=== PATIENT | male | born 1965 | race Two or more races ===

== ENCOUNTER 2017-04-18 11:09 | Emergency (ER) | payer OTHER, SELFPAY ==
[~2017-04-18] VITALS: Ht 190.5 cm; Wt 95.5 kg
[2017-04-18] MEDS ORDERED: HYDROcodone/APAP 5/325 TABLET ONE (11:38)
[2017-04-18] MEDS ORDERED: KETOROLAC 30 MG/1 ML ONE (11:38)
[2017-04-18] MEDS ORDERED: METHOCARBAMOL 750 MG TABLET ONE (11:38)
[2017-04-18] MEDS ORDERED: KETOROLAC 30 MG/1 ML IM ONE (12:00)
[2017-04-18] MEDS ORDERED: HYDROcodone/APAP 5/325 TABLET PO ONE (12:00)
[2017-04-18] MEDS ORDERED: METHOCARBAMOL 750 MG TABLET PO ONE (12:00)
[2017-04-18 13:55] VITALS: BP 130/82
== END 2017-04-18 13:58 | disposition home or self-care (01) ==
LOC: ED 12:20
DX: M54.41 Lumbago with sciatica, right side (principal); M47.26 Other spondylosis with radiculopathy, lumbar region; G89.29 Other chronic pain; M25.562 Pain in left knee
CPT/HCPCS: 72110; 96372; 99284; J1885

== ENCOUNTER 2018-04-18 12:00 | Emergency (ER) | payer BC ==
[~2018-04-18] VITALS: Ht 193 cm; Wt 93.0 kg
[2018-04-18] MEDS ORDERED: LORazepam 2 MG/ML, 1ML IVPush ONE (12:30)
[2018-04-18] MEDS ORDERED: ASPIRIN 81 MG TABLET CHEW PO ONE (12:30)
[2018-04-18] MEDS ORDERED: SODIUM CHLORIDE FLUSH 10ML SYR IVF ONE (12:30)
[2018-04-18] MEDS ORDERED: ASPIRIN 81 MG TABLET CHEW ONE (12:35)
[2018-04-18] MEDS ORDERED: LORazepam 2 MG/ML, 1ML ONE (12:36)
[2018-04-18 12:37] LABS: BASOPHILS # (AUTO) 0.04 x10^3/uL (0-0.1); BASOPHILS % (AUTO) 0 % (0-1); EOSINOPHILS # (AUTO) 0.09 x10^3/uL (0-0.4); EOSINOPHILS % (AUTO) 1 % (1-7); LYMPHOCYTES % (AUTO) 31 % (22-44); MD NO; MEAN CORPUSCULAR HEMOGLOBIN 27.3 pg (27.5-34.5); MEAN CORPUSCULAR HGB CONC 33.5 g/dL (33.2-36.2); MEAN CORPUSCULAR VOLUME 81.4 fL (81-97); MEAN PLATELET VOLUME 7.3 fL (7.4-10.4); MONOCYTES # (AUTO) 0.95 x10^3/uL (0.2-0.8); MONOCYTES % (AUTO) 8 % (2-9); NEUTROPHILS # (AUTO) 7.29 x10^3/uL (1.8-6.8); NEUTROPHILS % (AUTO) 60 % (42-75); PLATELET COUNT 359 x10^3/uL (130-400); RED BLOOD COUNT 5.33 x10^6/uL (4.38-5.82); RED CELL DISTRIBUTION WIDTH 14.2 % (9.4-14.8)
[2018-04-18 12:49] LABS: ALBUMIN 3.6 g/dL (3.4-5.0); ANION GAP 8 mmol/L (5-15); CALCIUM 8.3 mg/dL (8.5-10.1); CHLORIDE 108 mmol/L (98-107)
[2018-04-18 12:53] LABS: TROPONIN I < 0.015 ng/mL (0.000-0.045)
[2018-04-18 15:04] VITALS: BP 122/74
== END 2018-04-18 15:06 | disposition home or self-care (01) ==
LOC: ED 14:04
DX: I10 Essential (primary) hypertension (principal); H53.8 Other visual disturbances
CPT/HCPCS: 36415; 70450; 71045; 80048; 82040; 83880; 84484; 85025; 85379; 93005; 96374; 99285; J2060

== ENCOUNTER 2018-11-26 14:23 | Inpatient (IN) | payer MEDICAID, OTHER ==
[~2018-11-26] VITALS: Ht 193 cm; Wt 96.8 kg
--- NOTE | 2018-11-26 14:44 | NUR ---
Reviewed student nurse charting. Agree with assessment.
[2018-11-26 14:51] LABS: BASOPHILS # (AUTO) 0.04 x10^3/uL (0-0.1); BASOPHILS % (AUTO) 0 % (0-1); EOSINOPHILS # (AUTO) 0.02 x10^3/uL (0-0.4); EOSINOPHILS % (AUTO) 0 % (1-7); LYMPHOCYTES % (AUTO) 22 % (22-44); MD NO; MEAN CORPUSCULAR HEMOGLOBIN 27.7 pg (27.5-34.5); MEAN CORPUSCULAR HGB CONC 33.3 g/dL (33.2-36.2); MEAN CORPUSCULAR VOLUME 83.3 fL (81-97); MEAN PLATELET VOLUME 7.4 fL (7.4-10.4); MONOCYTES # (AUTO) 0.65 x10^3/uL (0.2-0.8); MONOCYTES % (AUTO) 4 % (2-9); NEUTROPHILS # (AUTO) 11.21 x10^3/uL (1.8-6.8); NEUTROPHILS % (AUTO) 74 % (42-75); PLATELET COUNT 372 x10^3/uL (130-400); RED CELL DISTRIBUTION WIDTH 14.4 % (9.4-14.8)
[2018-11-26 15:03] LABS: ALBUMIN 4.1 g/dL (3.4-5.0); ANION GAP 9 mmol/L (5-15); CALCIUM 9.4 mg/dL (8.5-10.1); CHLORIDE 108 mmol/L (98-107); CREATININE 0.94 mg/dL (0.7-1.3)
[2018-11-26 15:08] LABS: MICROSCOPIC AUTO
[2018-11-26 15:09] LABS: CULTURE INDICATED? YES
--- NOTE | 2018-11-26 15:33 | NUR ---
Pt c/o penis pain. Dr. Araiza made aware.
[2018-11-26 15:40] LABS: ALBUMIN 4.1 g/dL (3.4-5.0); BILIRUBIN, DIRECT 0.1 mg/dL (0.1-0.2)
[2018-11-26] MEDS ORDERED: ACETAMINOPHEN 500 MG TABLET ONE (15:40)
[2018-11-26] MEDS ORDERED: CEFTRIAXONE PMX 1GM/50ML 50 ML ONE (15:40)
[2018-11-26 15:41] LABS: BILIRUBIN,INDIRECT 0.3 mg/dL (0.0-2.0); BILIRUBIN,TOTAL 0.4 mg/dL (0.2-1.0); TOTAL PROTEIN 8.3 g/dL (6.4-8.2)
--- NOTE | 2018-11-26 15:47 | NUR ---
Pt medicated per MAR, denies other needs.
[2018-11-26] MEDS ORDERED: SODIUM CHLORIDE FLUSH 10ML SYR IVF ONE (16:00)
[2018-11-26] MEDS ORDERED: SODIUM CHLORIDE 0.9% 1,000ML IVBOLUS ONE (16:00)
[2018-11-26] MEDS ORDERED: CEFTRIAXONE PMX 1GM/50ML 50 ML IVPB ONE (16:00)
[2018-11-26] MEDS ORDERED: ACETAMINOPHEN 500 MG TABLET PO ONE (16:00)
[2018-11-26] MEDS ORDERED: KETOROLAC 30 MG/1 ML ONE (16:12)
--- NOTE | 2018-11-26 16:16 | NUR ---
Pt medicated for continued pain per MAR
[2018-11-26] MEDS ORDERED: KETOROLAC 30 MG/1 ML IVPush ONE (16:30)
[2018-11-26] MEDS ORDERED: OMNIPAQUE 350 MG/ML, 100ML BOTTLE ONE (16:50)
[2018-11-26] MEDS ORDERED: HYDROcodone/APAP 5/325 TABLET ONE (17:27)
[2018-11-26] MEDS ORDERED: HYDROcodone/APAP 5/325 TABLET PO ONE (17:30)
--- NOTE | 2018-11-26 17:30 | NUR ---
Pt states pain still 02/06, requesting additional pain medication. Discussed with Dr. Araiza, orders received for [place] PO. Pt medicated per order, denies other needs.
--- NOTE | 2018-11-26 17:42 | NUR ---
Dr. Briceño at bedside to evaluate pt for admission.
--- NOTE | 2018-11-26 17:52 | NUR ---
Report called to Chavez RAHMAN on medical, floor ready for pt transport.
[2018-11-26] MEDS ORDERED: POLYETHYLENE GLYCOL 17 GM PACKET PO PRN (18:00)
[2018-11-26] MEDS ORDERED: LABETALOL 20 MG/4 ML IVPush PRN (18:00)
[2018-11-26] MEDS ORDERED: ONDANSETRON ODT 4 MG PO PRN (18:00)
[2018-11-26] MEDS ORDERED: ONDANSETRON 2MG/ML, 2ML IVPush PRN (18:00)
[2018-11-26 18:08] LABS: FREE T4 (FREE THYROXINE) 0.99 ng/dL (0.76-1.46)
--- NOTE | 2018-11-26 18:15 | NUR ---
Pt in MRI at this time.
[2018-11-26] MEDS ORDERED: GADOBUTROL 10 MMOL/10 ML PFS ONE (18:23)
[2018-11-26 18:28] LABS: HCT (SEDRATE) 45.8 % (39.2-51.8)
--- NOTE | 2018-11-26 18:42 | NUR ---
Pt back from MRI, given water per request. Pt denies other needs.
[2018-11-26 19:40] VITALS: BP 130/78
[2018-11-26] MEDS: SODIUM CHLORIDE 0.9% 1,000 ML IV SCH (21:19)
[2018-11-27] MEDS ORDERED: ACETAMINOPHEN 325 MG TABLET PO PRN (00:30)
[2018-11-27] MEDS ORDERED: morphine SULFATE 10 MG/ML, 1ML IVPush PRN (00:30)
[2018-11-27] MEDS: KETOROLAC 30 MG/1 ML IV PRN ×4 (00:38→21:17)
[2018-11-27 00:40] LABS: AMPHETAMINE SCREEN, URINE Negative (Negative); BARBITURATE SCREEN, URINE Negative (Negative); BENZODIAZEPINE SCREEN, URINE Negative (Negative); CANNABINOID SCREEN, URINE Negative (Negative); COCAINE SCREEN, URINE Negative (Negative); METHADONE SCREEN, URINE Negative (Negative); OPIATE SCREEN, URINE Positive (Negative)
[2018-11-27 02:44] VITALS: BP 126/78
[2018-11-27 04:38] LABS: BASOPHILS # (AUTO) 0.02 x10^3/uL (0-0.1); BASOPHILS % (AUTO) 0 % (0-1); EOSINOPHILS # (AUTO) 0.13 x10^3/uL (0-0.4); EOSINOPHILS % (AUTO) 1 % (1-7); LYMPHOCYTES # (AUTO) 3.64 x10^3/uL (1-3.4); LYMPHOCYTES % (AUTO) 39 % (22-44); MD NO; MEAN CORPUSCULAR HEMOGLOBIN 27.9 pg (27.5-34.5); MEAN CORPUSCULAR HGB CONC 33.4 g/dL (33.2-36.2); MEAN CORPUSCULAR VOLUME 83.5 fL (81-97); MEAN PLATELET VOLUME 7.5 fL (7.4-10.4); MONOCYTES # (AUTO) 0.65 x10^3/uL (0.2-0.8); MONOCYTES % (AUTO) 7 % (2-9); NEUTROPHILS # (AUTO) 4.79 x10^3/uL (1.8-6.8); NEUTROPHILS % (AUTO) 52 % (42-75); PLATELET COUNT 299 x10^3/uL (130-400); RED BLOOD COUNT 4.48 x10^6/uL (4.38-5.82); RED CELL DISTRIBUTION WIDTH 14.7 % (9.4-14.8)
[2018-11-27] MEDS: CEFTRIAXONE PMX 2GM/50ML 50 ML IV SCH (04:47)
[2018-11-27 04:48] LABS: ALANINE AMINOTRANSFERASE 16 U/L (12-78); ALBUMIN 2.9 g/dL (3.4-5.0); ANION GAP 6 mmol/L (5-15); CALCIUM 8.3 mg/dL (8.5-10.1); CHLORIDE 111 mmol/L (98-107); CREATININE 0.81 mg/dL (0.7-1.3)
[2018-11-27] MEDS: SODIUM CHLORIDE 0.9% 1,000 ML IV SCH ×3 (04:48→21:15)
[2018-11-27 04:59] LABS: ALKALINE PHOSPHATASE 60 U/L (45-117); BILIRUBIN,TOTAL 0.3 mg/dL (0.2-1.0); TOTAL PROTEIN 6.1 g/dL (6.4-8.2)
[2018-11-27] MEDS: SENNA/DOCUSATE TABLET PO SCH (08:25)
[2018-11-27 08:59] VITALS: BP 118/74
[2018-11-27] MEDS: METHOCARBAMOL 500 MG TABLET PO PRN ×2 (11:02→17:10)
[2018-11-27 13:30] VITALS: BP 119/66
[2018-11-27 18:47] VITALS: BP 135/83
[2018-11-28] MEDS: METHOCARBAMOL 500 MG TABLET PO PRN ×4 (01:45→20:32)
[2018-11-28 02:33] VITALS: BP 134/75
[2018-11-28] MEDS: SODIUM CHLORIDE 0.9% 1,000 ML IV SCH ×3 (04:12→20:33)
[2018-11-28] MEDS: CEFTRIAXONE PMX 2GM/50ML 50 ML IV SCH (04:12)
[2018-11-28 07:07] VITALS: BP 129/78
[2018-11-28 08:10] LABS: BASOPHILS # (AUTO) 0.03 x10^3/uL (0-0.1); BASOPHILS % (AUTO) 0 % (0-1); EOSINOPHILS # (AUTO) 0.06 x10^3/uL (0-0.4); EOSINOPHILS % (AUTO) 1 % (1-7); LYMPHOCYTES # (AUTO) 3.06 x10^3/uL (1-3.4); LYMPHOCYTES % (AUTO) 35 % (22-44); MD NO; MEAN CORPUSCULAR HEMOGLOBIN 27.3 pg (27.5-34.5); MEAN CORPUSCULAR HGB CONC 33.1 g/dL (33.2-36.2); MEAN CORPUSCULAR VOLUME 82.5 fL (81-97); MEAN PLATELET VOLUME 7.5 fL (7.4-10.4); MONOCYTES # (AUTO) 0.53 x10^3/uL (0.2-0.8); MONOCYTES % (AUTO) 6 % (2-9); NEUTROPHILS # (AUTO) 5.13 x10^3/uL (1.8-6.8); NEUTROPHILS % (AUTO) 58 % (42-75); PLATELET COUNT 337 x10^3/uL (130-400); RED BLOOD COUNT 4.82 x10^6/uL (4.38-5.82); RED CELL DISTRIBUTION WIDTH 14.3 % (9.4-14.8)
[2018-11-28 08:18] LABS: ALBUMIN 3.4 g/dL (3.4-5.0); ANION GAP 5 mmol/L (5-15); CALCIUM 8.5 mg/dL (8.5-10.1)
[2018-11-28 08:22] LABS: ALANINE AMINOTRANSFERASE 17 U/L (12-78); ALKALINE PHOSPHATASE 68 U/L (45-117); BILIRUBIN,TOTAL 0.4 mg/dL (0.2-1.0); CREATININE 0.86 mg/dL (0.7-1.3)
[2018-11-28 08:27] LABS: CHLORIDE 113 mmol/L (98-107)
[2018-11-28] MEDS: KETOROLAC 30 MG/1 ML IV PRN ×2 (08:32→20:32)
[2018-11-28] MEDS: SENNA/DOCUSATE TABLET PO SCH (09:00)
[2018-11-28] MEDS: DOXYCYCLINE 100MG TABLET PO SCH ×2 (09:30→20:32)
[2018-11-28 14:13] VITALS: BP 150/89
[2018-11-28 19:35] VITALS: BP 141/85
[2018-11-29 03:55] VITALS: BP 127/79
[2018-11-29] MEDS: SODIUM CHLORIDE 0.9% 1,000 ML IV SCH (03:57)
[2018-11-29] MEDS: CEFTRIAXONE PMX 2GM/50ML 50 ML IV SCH (03:57)
[2018-11-29 07:04] VITALS: BP 125/78
[2018-11-29] MEDS: SENNA/DOCUSATE TABLET PO SCH (09:00)
[2018-11-29] MEDS: DOXYCYCLINE 100MG TABLET PO SCH (09:21)
[2018-11-29] MEDS ORDERED: CEFD300C37 PO (10:10)
[2018-11-29] MEDS ORDERED: DOXY100T PO (10:10)
== END 2018-11-29 11:11 | disposition home or self-care (01) | DRG 872 ==
LOC: ED 15:36 → EDIP 17:16 → 3NE 17:55 → DCLOUNGE 11-29 11:07
PROVIDERS: ADMIT Internal Medicine; ATTEND Internal Medicine
DX: A41.9 Sepsis, unspecified organism (principal); N10 Acute pyelonephritis; A54.9 Gonococcal infection, unspecified; K80.20 Calculus of gallbladder without cholecystitis without obstruction; R36.9 Urethral discharge, unspecified; Z86.73 Personal history of transient ischemic attack (TIA), and cerebral infarction without residual deficits; F17.200 Nicotine dependence, unspecified, uncomplicated; G89.29 Other chronic pain; J01.90 Acute sinusitis, unspecified; M48.061 Spinal stenosis, lumbar region without neurogenic claudication; R32 Unspecified urinary incontinence; Z90.49 Acquired absence of other specified parts of digestive tract; M54.16 Radiculopathy, lumbar region; H53.8 Other visual disturbances; R31.9 Hematuria, unspecified
CPT/HCPCS: 36415; 72158; 74177; 80048; 80053; 80074; 80076; 80307; 81001; 82040; 83605; 83735; 84100; 84145; 84439; 84443; 85025; 85651; 86592; 87040; 87077; 87086; 87491; 87591; 87806; 96365; 96375; 99291; A9585; G0378; J0696; J1885; Q9967; G0475; J7030

== ENCOUNTER 2019-12-05 08:02 | Inpatient (IN) | payer MEDICAID ==
[~2019-12-05] VITALS: Ht 193 cm; Wt 95.5 kg
[~2019-12-05 08:02] MED LIST: CEFD300C37 PO; DOXY100T PO
--- NOTE | 2019-12-05 08:12 | NUR ---
patient arrives with [facility] from [facility] with pain to left hip and groin that began a week ago. he is writhing in pain. he states he has had this pain for so many years he can't recall.
[2019-12-05] MEDS ORDERED: methylPREDNISolone SOD SUCC 125 MG/2 ML ONE (08:23)
[2019-12-05] MEDS ORDERED: DIAZEPAM 5 MG TABLET ONE (08:23)
[2019-12-05] MEDS ORDERED: HYDROmorphone 1 MG/ML, 1ML INJ ONE (08:24)
[2019-12-05] MEDS ORDERED: DIAZEPAM 5 MG TABLET PO ONE (08:30)
[2019-12-05] MEDS ORDERED: methylPREDNISolone SOD SUCC 125 MG/2 ML IVPush ONE (08:30)
[2019-12-05] MEDS ORDERED: SODIUM CHLORIDE FLUSH 10ML SYR IVF ONE (08:30)
[2019-12-05] MEDS ORDERED: PLEASE ENTER HEIGHT AND WEIGHT MC SCH (08:30)
[2019-12-05] MEDS ORDERED: HYDROmorphone 1 MG/ML, 1ML INJ IVPush PRN (08:30)
[2019-12-05 08:32] LABS: BASOPHILS # (AUTO) 0.03 x10^3/uL (0-0.1); BASOPHILS % (AUTO) 0 % (0-1); EOSINOPHILS # (AUTO) 0.08 x10^3/uL (0-0.4); EOSINOPHILS % (AUTO) 1 % (1-7); LYMPHOCYTES # (AUTO) 2.58 x10^3/uL (1-3.4); LYMPHOCYTES % (AUTO) 30 % (22-44); MD NO; MEAN CORPUSCULAR HEMOGLOBIN 27.3 pg (27.5-34.5); MEAN CORPUSCULAR HGB CONC 33.2 g/dL (33.2-36.2); MEAN CORPUSCULAR VOLUME 82.3 fL (81-97); MEAN PLATELET VOLUME 7.6 fL (7.4-10.4); MONOCYTES # (AUTO) 0.64 x10^3/uL (0.2-0.8); MONOCYTES % (AUTO) 7 % (2-9); NEUTROPHILS # (AUTO) 5.35 x10^3/uL (1.8-6.8); NEUTROPHILS % (AUTO) 62 % (42-75); PLATELET COUNT 297 x10^3/uL (130-400); RED BLOOD COUNT 5.23 x10^6/uL (4.38-5.82); RED CELL DISTRIBUTION WIDTH 13.8 % (9.4-14.8)
[2019-12-05 08:42] LABS: ALBUMIN 3.8 g/dL (3.4-5.0); ANION GAP 11 mmol/L (5-15); CALCIUM 8.7 mg/dL (8.5-10.1); CHLORIDE 107 mmol/L (98-107); CREATININE 1.06 mg/dL (0.7-1.3)
--- NOTE | 2019-12-05 09:01 | NUR ---
patient awaiting mri. pain now a 5 of 10, feels improved.
[2019-12-05] MEDS ORDERED: GADOTERATE 10 MMOL/20 ML SYR ONE ×2 (09:19→18:36)
--- NOTE | 2019-12-05 10:01 | NUR ---
patient returned from mri. pain improved. awaiting results.
[2019-12-05] MEDS ORDERED: KETOROLAC 30 MG/1 ML ONE (10:29)
[2019-12-05] MEDS ORDERED: KETOROLAC 30 MG/1 ML IVPush ONE (10:30)
--- NOTE | 2019-12-05 11:57 | NUR ---
called x1 for report, rn in another room.
[2019-12-05] MEDS ORDERED: ACETAMINOPHEN 325 MG TABLET PO PRN (12:00)
[2019-12-05] MEDS ORDERED: METHOCARBAMOL 500 MG TABLET PO PRN (12:00)
[2019-12-05] MEDS ORDERED: LABETALOL 5MG/ML, 20ML IVPush PRN (12:00)
[2019-12-05] MEDS ORDERED: GABAPENTIN 300 MG CAPSULE PO SCH (12:00)
[2019-12-05] MEDS ORDERED: ONDANSETRON 2MG/ML, 2ML IVPush PRN (12:00)
[2019-12-05] MEDS ORDERED: LIDODERM 5% PATCH TD PRN (12:00)
[2019-12-05] MEDS ORDERED: MEDROL 4MG DOSEPAK PO ONE (12:00)
[2019-12-05] MEDS ORDERED: IBUPROFEN 600 MG TABLET PO PRN (12:00)
[2019-12-05] MEDS ORDERED: morphine SULFATE 10 MG/ML, 1ML IVPush PRN (12:00)
--- NOTE | 2019-12-05 12:12 | NUR ---
report to audra schofield and patient rtg [id number].
[2019-12-05 12:20] LABS: INTERNATIONAL NORMALIZED RATIO 0.96 (0.93-1.1); PROTHROMBIN TIME 10.2 Seconds (9.6-11.5)
[2019-12-05 12:39] VITALS: BP 136/82
[2019-12-05] MEDS ORDERED: HEPARIN 5,000 UNITS/ML, 1ML SQ SCH (13:00)
[2019-12-05] MEDS ORDERED: HYDROmorphone 2 MG/ML, 1ML ONE (15:53)
[2019-12-05] MEDS: HYDROcodone/APAP 5/325 TABLET PO PRN (18:05)
[2019-12-05] MEDS: POTASSIUM CHLORIDE 20 MEQ in LACTATED RINGERS 1,000 ML IV SCH (18:15)
[2019-12-05 19:05] VITALS: BP 157/87
[2019-12-05] MEDS: GABAPENTIN 300 MG CAPSULE PO SCH (20:03)
[2019-12-06 00:11] VITALS: BP 160/66
[2019-12-06 04:53] LABS: MEAN CORPUSCULAR HEMOGLOBIN 27.3 pg (27.5-34.5); MEAN CORPUSCULAR HGB CONC 32.6 g/dL (33.2-36.2); MEAN CORPUSCULAR VOLUME 83.6 fL (81-97); PLATELET COUNT 303 x10^3/uL (130-400); RED BLOOD COUNT 4.99 x10^6/uL (4.38-5.82); RED CELL DISTRIBUTION WIDTH 14.1 % (9.4-14.8)
[2019-12-06 04:59] LABS: ALBUMIN 3.4 g/dL (3.4-5.0); ANION GAP 7 mmol/L (5-15); CALCIUM 8.8 mg/dL (8.5-10.1); CHLORIDE 107 mmol/L (98-107)
[2019-12-06 05:03] LABS: ALANINE AMINOTRANSFERASE 22 U/L (12-78); ALKALINE PHOSPHATASE 76 U/L (45-117)
[2019-12-06] MEDS: POTASSIUM CHLORIDE 20 MEQ in LACTATED RINGERS 1,000 ML IV SCH (05:09)
[2019-12-06] MEDS: HYDROcodone/APAP 5/325 TABLET PO PRN (05:09)
[2019-12-06 06:06] LABS: BASOPHILS # (AUTO) 0.04 x10^3/uL (0-0.1); BASOPHILS % (AUTO) 0 % (0-1); EOSINOPHILS # (AUTO) 0.02 x10^3/uL (0-0.4); EOSINOPHILS % (AUTO) 0 % (1-7); LYMPHOCYTES % (AUTO) 13 % (22-44); MD SCAN; MONOCYTES # (AUTO) 1.13 x10^3/uL (0.2-0.8); MONOCYTES % (AUTO) 7 % (2-9); NEUTROPHILS # (AUTO) 13.71 x10^3/uL (1.8-6.8); NEUTROPHILS % (AUTO) 80 % (42-75)
[2019-12-06 07:02] VITALS: BP 141/76
[2019-12-06] MEDS: GABAPENTIN 300 MG CAPSULE PO SCH (09:32)
[2019-12-06] MEDS ORDERED: METH4TAB2 PO (09:45)
[2019-12-06] MEDS ORDERED: METH500T7 PO (09:45)
[2019-12-06] MEDS ORDERED: GABA300C10 PO (09:45)
[2019-12-06] MEDS ORDERED: HYDR-36 PO (09:45)
== END 2019-12-06 13:12 | disposition home or self-care (01) | DRG 552 ==
LOC: ED 09:40 → EDIP 09:59 → 3N 12:27
PROVIDERS: ADMIT Internal Medicine; ATTEND Internal Medicine Infectious Disease
DX: M51.16 Intervertebral disc disorders with radiculopathy, lumbar region (principal); D72.829 Elevated white blood cell count, unspecified; M48.061 Spinal stenosis, lumbar region without neurogenic claudication; F17.200 Nicotine dependence, unspecified, uncomplicated; G89.29 Other chronic pain; W18.30XA Fall on same level, unspecified, initial encounter; Z59.0 Homelessness
CPT/HCPCS: 36415; 72114; 72156; 72158; 80048; 80053; 82040; 85025; 85347; 85384; 85576; 85610; 85730; 99285; G0378; J1170; J1885; J3480; J7509; A9575; J2930; J7120

== ENCOUNTER 2019-12-26 14:25 | Outpatient (CLI) | payer MEDICAID ==
[~2019-12-26 14:25] MED LIST changes: +GABA300C10 PO; +HYDR-3246 PO; +METH4TAB2 PO; +METH500T7 PO
[2019-12-26] MEDS ORDERED: TRAM50TA2 PO (15:38)
[2019-12-26] MEDS ORDERED: prednisone PO (15:38)
[2019-12-26] MEDS ORDERED: GABA600T7 PO (15:38)
[2019-12-26 16:01] LABS: BASOPHILS # (AUTO) 0.04 x10^3/uL (0-0.1); BASOPHILS % (AUTO) 0 % (0-1); EOSINOPHILS # (AUTO) 0.01 x10^3/uL (0-0.4); EOSINOPHILS % (AUTO) 0 % (1-7); LYMPHOCYTES % (AUTO) 13 % (22-44); MD NO; MEAN CORPUSCULAR HEMOGLOBIN 27.5 pg (27.5-34.5); MEAN CORPUSCULAR HGB CONC 32.8 g/dL (33.2-36.2); MEAN CORPUSCULAR VOLUME 83.9 fL (81-97); MEAN PLATELET VOLUME 7.9 fL (7.4-10.4); MONOCYTES # (AUTO) 0.35 x10^3/uL (0.2-0.8); MONOCYTES % (AUTO) 3 % (2-9); NEUTROPHILS # (AUTO) 10.52 x10^3/uL (1.8-6.8); NEUTROPHILS % (AUTO) 84 % (42-75); PLATELET COUNT 325 x10^3/uL (130-400); RED BLOOD COUNT 5.21 x10^6/uL (4.38-5.82); RED CELL DISTRIBUTION WIDTH 13.8 % (9.4-14.8)
[2019-12-26 16:03] LABS: MICROSCOPIC NOT IND
[2019-12-26 16:09] LABS: INTERNATIONAL NORMALIZED RATIO 0.93 (0.93-1.1); PROTHROMBIN TIME 9.8 Seconds (9.6-11.5)
[2019-12-26 16:12] LABS: ANION GAP 9 mmol/L (5-15); CALCIUM 8.7 mg/dL (8.5-10.1); CHLORIDE 106 mmol/L (98-107); CREATININE 1.15 mg/dL (0.7-1.3)
== END 2019-12-26 23:59 | disposition home or self-care (01) ==
LOC: STAR 14:25
PROVIDERS: ATTEND Orthopaedic Surgery
DX: Z01.818 Encounter for other preprocedural examination (principal); Z11.59 Encounter for screening for other viral diseases; M48.061 Spinal stenosis, lumbar region without neurogenic claudication
CPT/HCPCS: 36415; 71046; 80048; 81003; 82306; 85025; 85610; 85730; 93005; U0001

== ENCOUNTER 2019-12-30 12:15 | Observation (INO) | payer MEDICAID ==
[~2019-12-30] VITALS: Ht 193 cm; Wt 100.0 kg
[~2019-12-30 12:15] MED LIST changes: +GABA600T7 PO; +TRAM50TA2 PO; +prednisone PO
[2019-12-30] MEDS ORDERED: LIDOCAINE-MPF 1%, 2ML INFIL STA (12:22)
[2019-12-30] MEDS ORDERED: CHLORHEXIDINE 15 ML UDC MM STA (12:22)
[2019-12-30] MEDS ORDERED: LACTATED RINGERS 1,000 ML IV SCH (12:22)
[2019-12-30] MEDS ORDERED: ACETAMINOPHEN 500 MG TABLET PO STA (12:23)
[2019-12-30] MEDS ORDERED: ONDANSETRON ODT 8 MG PO STA (12:23)
[2019-12-30] MEDS ORDERED: OXYcodone IR 5MG TABLET PO STA (12:23)
[2019-12-30] MEDS ORDERED: GABAPENTIN 300 MG CAPSULE PO STA (12:23)
[2019-12-30] MEDS ORDERED: CEFAZOLIN PMX 1GM/50ML 50 ML IV STA (12:24)
[2019-12-30] MEDS ORDERED: Lyrica PO (12:50)
[2019-12-30] MEDS ORDERED: GABA300C PO (12:50)
[2019-12-30] MEDS ORDERED: METH750T87 PO (12:50)
[2019-12-30] MEDS ORDERED: FENTANYL PF 250 MCG/5ML ONE (15:29)
[2019-12-30] MEDS ORDERED: MIDAZOLAM 1 MG/ML, 2ML ONE (15:29)
[2019-12-30] MEDS ORDERED: BUPIVACAINE/PF-EPI 0.5% 1:200K ONE (16:07)
[2019-12-30] MEDS ORDERED: VANCOMYCIN 1,000 MG ONE (16:07)
[2019-12-30] MEDS ORDERED: BACITRACIN 50,000 UNIT ONE (16:07)
[2019-12-30] MEDS ORDERED: PHARMACY MAY ADJ FOR RENAL FX MC PRN (16:30)
[2019-12-30] MEDS ORDERED: BISACODYL 10 MG SUPP PR PRN (16:30)
[2019-12-30] MEDS ORDERED: ZOLPIDEM 5MG TABLET PO PRN (16:30)
[2019-12-30] MEDS ORDERED: SENNA/DOCUSATE TABLET PO PRN (16:30)
[2019-12-30] MEDS ORDERED: MORPHINE SULFATE 4 MG/ML, 1ML IVPush PRN (16:30)
[2019-12-30] MEDS ORDERED: DIPHENHYDRAMINE 50 MG/ML, 1ML IVPush PRN (16:30)
[2019-12-30] MEDS ORDERED: HYDROcodone/APAP 5/325 TABLET PO PRN (16:30)
[2019-12-30] MEDS ORDERED: LABETALOL 5MG/ML, 20ML IVPush PRN (16:30)
[2019-12-30] MEDS ORDERED: DIPHENHYDRAMINE 50 MG/ML, 1ML IM PRN (16:30)
[2019-12-30] MEDS ORDERED: MAGNESIUM HYDROXIDE 8%, 30ML UDC PO PRN (16:30)
[2019-12-30] MEDS ORDERED: ONDANSETRON 2MG/ML, 2ML IVPush PRN ×2 (16:30→17:00)
[2019-12-30] MEDS ORDERED: PROMETHAZINE 25 MG/ML, 1ML IM PRN (16:30)
[2019-12-30] MEDS ORDERED: LIDOCAINE-MPF 2% ,5ML ONE (16:35)
[2019-12-30] MEDS ORDERED: KETOROLAC 30 MG/1 ML ONE (16:35)
[2019-12-30] MEDS ORDERED: ROCURONIUM 10MG/ML,5ML ONE (16:35)
[2019-12-30] MEDS ORDERED: SUGAMMADEX 200 MG/2 ML IVPush ONE (16:35)
[2019-12-30] MEDS ORDERED: PROPOFOL 10 MG/ML, 20ML ONE (16:35)
[2019-12-30] MEDS ORDERED: DEXAMETHASONE 4 MG/ML, 1ML ONE (16:35)
[2019-12-30] MEDS ORDERED: hydrALAzine 20 MG/ML, 1ML IV PRN (17:00)
[2019-12-30] MEDS ORDERED: MEPERIDINE/PF 25MG/0.5ML IVPush PRN (17:00)
[2019-12-30] MEDS ORDERED: METHOCARBAMOL 1,000 MG in DEXTROSE 5% 100 ML IV PRN (17:00)
[2019-12-30] MEDS ORDERED: OXYcodone 5 MG/5 ML ORAL.SOL UDC PO PRN (17:00)
[2019-12-30] MEDS ORDERED: HYDROmorphone 1 MG/ML, 1ML INJ IVPush PRN (17:00)
[2019-12-30] MEDS ORDERED: BUPIVACAINE/PF-EPI 0.5% 1:200K IM ONE (17:04)
[2019-12-30] MEDS ORDERED: BACITRACIN 50,000 UNIT IM ONE (17:06)
[2019-12-30] MEDS ORDERED: THROMBIN 5,000 UNIT VIAL TP ONE (17:07)
[2019-12-30] MEDS: FENTANYL PF 100 MCG/2ML IV PRN ×2 (17:57→18:04)
[2019-12-30] MEDS ORDERED: FENTANYL PF 100 MCG/2ML ONE (17:57)
[2019-12-30] MEDS ORDERED: HYDROmorphone 1 MG/ML, 1ML INJ ONE (17:57)
[2019-12-30 19:00] VITALS: BP 123/72
[2019-12-30] MEDS: GABAPENTIN 300 MG CAPSULE PO SCH (19:40)
[2019-12-30] MEDS: OXYcodone/APAP 5/325MG TABLET PO PRN (19:40)
[2019-12-30] MEDS: CEFAZOLIN PMX 1GM/50ML 50 ML IVPB SCH (22:04)
[2019-12-30] MEDS: NS + 20MEQ KCL 1,000 ML IV SCH (22:04)
[2019-12-31] MEDS: METHOCARBAMOL 750 MG TABLET PO PRN ×2 (00:20→10:35)
[2019-12-31] MEDS: OXYcodone/APAP 5/325MG TABLET PO PRN ×4 (00:20→13:20)
[2019-12-31 00:39] VITALS: BP 114/58
[2019-12-31] MEDS: NS + 20MEQ KCL 1,000 ML IV SCH ×2 (02:30→12:56)
[2019-12-31 03:58] VITALS: BP 109/56
[2019-12-31] MEDS: CEFAZOLIN PMX 1GM/50ML 50 ML IVPB SCH (05:33)
[2019-12-31 07:06] LABS: MEAN CORPUSCULAR HGB CONC 32.3 g/dL (33.2-36.2); MEAN CORPUSCULAR VOLUME 83.5 fL (81-97); MEAN PLATELET VOLUME 7.7 fL (7.4-10.4); PLATELET COUNT 298 x10^3/uL (130-400); RED BLOOD COUNT 4.91 x10^6/uL (4.38-5.82); RED CELL DISTRIBUTION WIDTH 13.9 % (9.4-14.8)
[2019-12-31] MEDS: GABAPENTIN 300 MG CAPSULE PO SCH (07:10)
[2019-12-31 07:15] LABS: ANION GAP 9 mmol/L (5-15); CALCIUM 8.5 mg/dL (8.5-10.1); CHLORIDE 106 mmol/L (98-107); CREATININE 1.03 mg/dL (0.7-1.3)
[2019-12-31 07:18] VITALS: BP 109/64
[2019-12-31 07:30] LABS: BASOPHILS # (AUTO) 0.03 x10^3/uL (0-0.1); BASOPHILS % (AUTO) 0 % (0-1); EOSINOPHILS % (AUTO) 0 % (1-7); LYMPHOCYTES # (AUTO) 1.48 x10^3/uL (1-3.4); LYMPHOCYTES % (AUTO) 10 % (22-44); MD SCAN; MONOCYTES # (AUTO) 0.63 x10^3/uL (0.2-0.8); MONOCYTES % (AUTO) 4 % (2-9); NEUTROPHILS # (AUTO) 12.53 x10^3/uL (1.8-6.8); NEUTROPHILS % (AUTO) 86 % (42-75)
[2019-12-31] MEDS ORDERED: OXYC-306 PO (09:52)
[2019-12-31] MEDS ORDERED: CEPH-368 PO (09:52)
[2019-12-31 13:17] VITALS: BP 137/76
== END 2019-12-31 14:25 | disposition home or self-care (01) ==
LOC: OR 12:15 → ORIP 16:11 → 4NE 18:50
PROVIDERS: ADMIT Orthopaedic Surgery; ATTEND Orthopaedic Surgery
DX: M51.26 Other intervertebral disc displacement, lumbar region (principal); M48.061 Spinal stenosis, lumbar region without neurogenic claudication; R53.1 Weakness; G43.909 Migraine, unspecified, not intractable, without status migrainosus; G47.00 Insomnia, unspecified; M21.379 Foot drop, unspecified foot; M43.16 Spondylolisthesis, lumbar region
CPT/HCPCS: 36415; 63047; 72100; 80048; 85025; 96365; 96366; 96375; 97161; 97165; G0378; J0690; J1100; J1170; J1885; J2250; J2270; J2405; J2704; J2800; J3010; J3370; J3480; J3490; J7120; Q0162

== ENCOUNTER 2020-01-02 00:16 | Inpatient (IN) | payer MEDICAID ==
[~2020-01-02] VITALS: Ht 193 cm; Wt 97.0 kg
[~2020-01-02 00:16] MED LIST changes: +CEPH-368 PO; +GABA300C PO; +Lyrica PO; +METH750T87 PO; +OXYC-306 PO
[2020-01-02] MEDS ORDERED: DIAZEPAM 5 MG/ML, 2ML IVPush ONE (00:30)
[2020-01-02] MEDS ORDERED: ONDANSETRON 2MG/ML, 2ML IVPush ONE (00:30)
[2020-01-02] MEDS ORDERED: SODIUM CHLORIDE FLUSH 10ML SYR IVF ONE (00:30)
--- NOTE | 2020-01-02 00:38 | NUR ---
PT HERE FOR C/O BACK PAIN AT SURGERY SITE, HAD SPINAL SURGERY ON Monday12/30/2019, PT REPORTS JOHNSON SINCE YESTERDAY TAKING TYLENOL PRESCRIBED WITH NO RELIEF. PLACED VITALS SIGNS MONITORS. IV STARTED, AND PLACED CALL LIGHT WITHIN REACH.
[2020-01-02] MEDS ORDERED: DIAZEPAM 5 MG/ML, 2ML ONE (00:42)
[2020-01-02] MEDS ORDERED: ONDANSETRON 2MG/ML, 2ML ONE (00:43)
[2020-01-02] MEDS ORDERED: HYDROmorphone 1 MG/ML, 1ML INJ ONE ×2 (00:43→01:26)
[2020-01-02] MEDS: HYDROmorphone 1 MG/ML, 1ML INJ IVPush PRN ×2 (00:52→01:28)
--- NOTE | 2020-01-02 00:59 | NUR ---
XRAY AT BEDSIDE.
[2020-01-02 01:03] LABS: MEAN CORPUSCULAR HEMOGLOBIN 27.4 pg (27.5-34.5); MEAN CORPUSCULAR HGB CONC 33.3 g/dL (33.2-36.2); MEAN CORPUSCULAR VOLUME 82.3 fL (81-97); MEAN PLATELET VOLUME 8.1 fL (7.4-10.4); PLATELET COUNT 286 x10^3/uL (130-400); RED BLOOD COUNT 4.85 x10^6/uL (4.38-5.82); RED CELL DISTRIBUTION WIDTH 14.4 % (9.4-14.8)
[2020-01-02 01:04] LABS: HCT (SEDRATE) 40.3 % (39.2-51.8)
[2020-01-02 01:07] LABS: ALANINE AMINOTRANSFERASE 31 U/L (12-78); ALBUMIN 3.5 g/dL (3.4-5.0); ANION GAP 7 mmol/L (5-15); CALCIUM 8.8 mg/dL (8.5-10.1); CHLORIDE 105 mmol/L (98-107)
[2020-01-02 01:13] LABS: ALKALINE PHOSPHATASE 70 U/L (45-117); BILIRUBIN,TOTAL 0.8 mg/dL (0.2-1.0); TOTAL PROTEIN 7.8 g/dL (6.4-8.2)
--- NOTE | 2020-01-02 01:37 | NUR ---
PT UNABLE TO VOID AT THIS TIME.
[2020-01-02 01:51] LABS: BASOPHILS # (AUTO) 0.03 x10^3/uL (0-0.1); BASOPHILS % (AUTO) 0 % (0-1); EOSINOPHILS # (AUTO) 0.03 x10^3/uL (0-0.4); EOSINOPHILS % (AUTO) 0 % (1-7); LYMPHOCYTES # (AUTO) 3.26 x10^3/uL (1-3.4); LYMPHOCYTES % (AUTO) 21 % (22-44); MD SCAN; MONOCYTES # (AUTO) 1.55 x10^3/uL (0.2-0.8); MONOCYTES % (AUTO) 10 % (2-9); NEUTROPHILS # (AUTO) 10.32 x10^3/uL (1.8-6.8); NEUTROPHILS % (AUTO) 68 % (42-75)
--- NOTE | 2020-01-02 02:01 | NUR ---
TASK RN: PT IN MRI. UA COLLECTED AND SENT TO LAB.
[2020-01-02 02:06] LABS: MICROSCOPIC NOT IND
[2020-01-02] MEDS ORDERED: GADOTERATE 10 MMOL/20 ML SYR ONE (02:18)
--- NOTE | 2020-01-02 02:56 | NUR ---
PT BACK FROM MRI, VSS. PT REPORTS HE FEELS BETTER PAIN 02/06. SAFETY FALL PRECAUTIONS IN PLACE. AT BEDSIDE.
--- NOTE | 2020-01-02 03:48 | NUR ---
BP RECHECKED, PT WAS LAYING ON SIDE WHEN PREVIOUS BP READ 87/42, RECHECKED BP IS 130/55.
--- NOTE | 2020-01-02 03:54 | NUR ---
LAB AT BEDSIDE FOR BLOOD CULTURES.
[2020-01-02] MEDS ORDERED: PIPERACILLIN/TAZO/PMX 3.375GM 50 ML ONE (03:57)
[2020-01-02] MEDS ORDERED: VANCOMYCIN 1,800 MG in SODIUM CHLORIDE 0.9% 250 ML IV ONE (04:00)
[2020-01-02] MEDS ORDERED: PIPERACILLIN/TAZO/PMX 3.375GM 50 ML IVPB ONE (04:00)
[2020-01-02] MEDS ORDERED: VANCOMYCIN PER PHARMACY MC ONE (04:00)
--- NOTE | 2020-01-02 04:41 | NUR ---
Vanco IV started. VSS.
--- NOTE | 2020-01-02 04:49 | NUR ---
REPORT GIVEN TO IVAN RAHMAN.
[2020-01-02 05:00] VITALS: BP 113/74
[2020-01-02] MEDS ORDERED: morphine SULFATE 10 MG/ML, 1ML IVPush PRN (05:00)
[2020-01-02] MEDS ORDERED: BISACODYL 10 MG SUPP PR PRN (05:00)
[2020-01-02] MEDS: LACTATED RINGERS 1,000 ML IV SCH ×2 (05:00→16:52)
[2020-01-02] MEDS ORDERED: PIPERACILLIN/TAZO/PMX 3.375GM 50 ML IV SCH (05:00)
[2020-01-02] MEDS ORDERED: ONDANSETRON 2MG/ML, 2ML IVPush PRN (05:00)
[2020-01-02] MEDS ORDERED: VANCOMYCIN PER PHARMACY MC PRN (05:00)
[2020-01-02] MEDS ORDERED: ACETAMINOPHEN 325 MG TABLET PO PRN (05:00)
[2020-01-02] MEDS ORDERED: hydrALAzine 20 MG/ML, 1ML IVPush PRN (05:00)
[2020-01-02] MEDS ORDERED: DIAZEPAM 5 MG/ML, 10ML VIAL IV PRN (05:00)
[2020-01-02 05:04] VITALS: BP 113/74
[2020-01-02] MEDS ORDERED: PHARMACOKINETIC CONSULTATION MC ONE (05:30)
[2020-01-02] MEDS ORDERED: PHARMACOKINETIC MONITORING MC PRN (05:30)
[2020-01-02] MEDS: OXYcodone/APAP 5/325MG TABLET PO PRN ×3 (05:39→16:45)
[2020-01-02 06:25] VITALS: BP 108/67
[2020-01-02] MEDS: SENNA/DOCUSATE TABLET PO SCH ×2 (08:12→16:52)
[2020-01-02] MEDS ORDERED: LIDOCAINE 1%, 10ML ONE (08:34)
[2020-01-02 12:37] VITALS: BP 115/72
[2020-01-02] MEDS ORDERED: VANCOMYCIN 1,800 MG in SODIUM CHLORIDE 0.9% 250 ML IV SCH (16:00)
[2020-01-02 19:05] VITALS: BP 118/67
[2020-01-03] MEDS: OXYcodone/APAP 5/325MG TABLET PO PRN ×2 (00:17→04:21)
[2020-01-03 01:46] VITALS: BP 104/62
[2020-01-03] MEDS: LACTATED RINGERS 1,000 ML IV SCH ×3 (02:52→21:00)
[2020-01-03 04:49] LABS: BASOPHILS # (AUTO) 0.02 x10^3/uL (0-0.1); BASOPHILS % (AUTO) 0 % (0-1); EOSINOPHILS % (AUTO) 1 % (1-7); LYMPHOCYTES % (AUTO) 27 % (22-44); MD NO; MEAN CORPUSCULAR HEMOGLOBIN 27.3 pg (27.5-34.5); MEAN CORPUSCULAR HGB CONC 32.7 g/dL (33.2-36.2); MEAN CORPUSCULAR VOLUME 83.4 fL (81-97); MEAN PLATELET VOLUME 7.9 fL (7.4-10.4); MONOCYTES # (AUTO) 1.08 x10^3/uL (0.2-0.8); MONOCYTES % (AUTO) 9 % (2-9); NEUTROPHILS # (AUTO) 7.28 x10^3/uL (1.8-6.8); NEUTROPHILS % (AUTO) 62 % (42-75); PLATELET COUNT 254 x10^3/uL (130-400); RED BLOOD COUNT 4.34 x10^6/uL (4.38-5.82); RED CELL DISTRIBUTION WIDTH 13.8 % (9.4-14.8)
[2020-01-03 04:59] LABS: CALCIUM 8.6 mg/dL (8.5-10.1); CHLORIDE 106 mmol/L (98-107)
[2020-01-03 05:03] LABS: ANION GAP 7 mmol/L (5-15); CREATININE 0.93 mg/dL (0.7-1.3)
[2020-01-03 07:49] VITALS: BP 104/67
[2020-01-03] MEDS: SENNA/DOCUSATE TABLET PO SCH (08:14)
[2020-01-03] MEDS: HYDROcodone/APAP 5/325 TABLET PO PRN ×4 (08:15→20:33)
[2020-01-03 13:07] VITALS: BP 127/76
[2020-01-03] MEDS ORDERED: LACTOBACILLUS CHEW TABLET ONE (16:45)
[2020-01-03] MEDS: LACTOBACILLUS CHEW TABLET PO SCH ×2 (16:46→20:33)
[2020-01-03 19:28] VITALS: BP 122/72
[2020-01-03] MEDS ORDERED: METHOCARBAMOL 750 MG TABLET PO ONE (23:00)
[2020-01-04] MEDS: HYDROcodone/APAP 5/325 TABLET PO PRN ×6 (00:45→23:02)
[2020-01-04 01:44] VITALS: BP 110/66
[2020-01-04] MEDS: LACTOBACILLUS CHEW TABLET PO SCH ×4 (04:47→21:30)
[2020-01-04 05:16] LABS: BASOPHILS # (AUTO) 0.02 x10^3/uL (0-0.1); BASOPHILS % (AUTO) 0 % (0-1); EOSINOPHILS # (AUTO) 0.16 x10^3/uL (0-0.4); EOSINOPHILS % (AUTO) 2 % (1-7); HCT (SEDRATE) 38.7 % (39.2-51.8); LYMPHOCYTES # (AUTO) 4.03 x10^3/uL (1-3.4); LYMPHOCYTES % (AUTO) 40 % (22-44); MD NO; MEAN CORPUSCULAR HEMOGLOBIN 27.4 pg (27.5-34.5); MEAN CORPUSCULAR HGB CONC 32.5 g/dL (33.2-36.2); MEAN CORPUSCULAR VOLUME 84.4 fL (81-97); MEAN PLATELET VOLUME 7.5 fL (7.4-10.4); MONOCYTES # (AUTO) 0.81 x10^3/uL (0.2-0.8); MONOCYTES % (AUTO) 8 % (2-9); NEUTROPHILS # (AUTO) 5.06 x10^3/uL (1.8-6.8); NEUTROPHILS % (AUTO) 50 % (42-75); PLATELET COUNT 307 x10^3/uL (130-400); RED BLOOD COUNT 4.53 x10^6/uL (4.38-5.82); RED CELL DISTRIBUTION WIDTH 13.9 % (9.4-14.8)
[2020-01-04 07:00] VITALS: BP 119/78
[2020-01-04] MEDS: LACTATED RINGERS 1,000 ML IV SCH ×3 (07:00→23:00)
[2020-01-04] MEDS: SENNA/DOCUSATE TABLET PO SCH (09:00)
[2020-01-04] MEDS ORDERED: TIZANIDINE 4MG TABLET PO PRN (10:00)
[2020-01-04 12:00] VITALS: BP 102/59
[2020-01-04 20:11] VITALS: BP 150/93
[2020-01-05 03:50] VITALS: BP 101/66
[2020-01-05] MEDS: LACTOBACILLUS CHEW TABLET PO SCH ×2 (05:46→11:01)
[2020-01-05 06:35] VITALS: BP 105/64
[2020-01-05] MEDS: SENNA/DOCUSATE TABLET PO SCH (08:34)
[2020-01-05] MEDS: HYDROcodone/APAP 5/325 TABLET PO PRN ×2 (08:35→12:26)
[2020-01-05] MEDS ORDERED: HYDR-3240 PO (09:53)
[2020-01-05 10:23] LABS: BASOPHILS # (AUTO) 0.03 x10^3/uL (0-0.1); BASOPHILS % (AUTO) 0 % (0-1); EOSINOPHILS # (AUTO) 0.15 x10^3/uL (0-0.4); EOSINOPHILS % (AUTO) 2 % (1-7); LYMPHOCYTES # (AUTO) 2.25 x10^3/uL (1-3.4); LYMPHOCYTES % (AUTO) 21 % (22-44); MD NO; MEAN CORPUSCULAR HEMOGLOBIN 27.7 pg (27.5-34.5); MEAN CORPUSCULAR HGB CONC 33.3 g/dL (33.2-36.2); MEAN CORPUSCULAR VOLUME 83.3 fL (81-97); MEAN PLATELET VOLUME 7.4 fL (7.4-10.4); MONOCYTES # (AUTO) 0.72 x10^3/uL (0.2-0.8); MONOCYTES % (AUTO) 7 % (2-9); NEUTROPHILS # (AUTO) 7.38 x10^3/uL (1.8-6.8); NEUTROPHILS % (AUTO) 70 % (42-75); PLATELET COUNT 351 x10^3/uL (130-400); RED BLOOD COUNT 4.85 x10^6/uL (4.38-5.82); RED CELL DISTRIBUTION WIDTH 14.2 % (9.4-14.8)
[2020-01-05] MEDS: LACTATED RINGERS 1,000 ML IV SCH (13:00)
== END 2020-01-05 13:02 | disposition home or self-care (01) | DRG 871 ==
LOC: ED 03:08 → EDIP 04:20 → 4NE 05:03 → DCLOUNGE 01-05 12:54
PROVIDERS: ADMIT Family Medicine; ATTEND Internal Medicine
DX: A41.9 Sepsis, unspecified organism (principal); G06.2 Extradural and subdural abscess, unspecified; D72.829 Elevated white blood cell count, unspecified; K59.00 Constipation, unspecified; D64.9 Anemia, unspecified; R50.82 Postprocedural fever; M21.372 Foot drop, left foot; Z87.891 Personal history of nicotine dependence; Z79.899 Other long term (current) drug therapy; Z83.3 Family history of diabetes mellitus
CPT/HCPCS: 10030; 36415; 84145; 96374; 96375; 96376; 99285; J3490; 71045; 72158; 76942; 80048; 80053; 81003; 83605; 85025; 85651; 86140; 87040; 87070; 87075; 87205; G0378; J1170; J2405; J2543; J3360; J3370; A9575; J7050; J7120

== ENCOUNTER 2020-10-29 17:19 | Emergency (ER) | payer MEDICAID ==
[~2020-10-29] VITALS: Ht 190.5 cm; Wt 90.8 kg
[~2020-10-29 17:19] MED LIST changes: +HYDR-1067 PO; -HYDR-3246 PO; +HYDR-3248 PO; +METH-639 PO; -METH500T7 PO; -OXYC-306 PO; +OXYC1TAB17 PO
--- NOTE | 2020-10-29 17:44 | NUR ---
CC OF COUGH AND RIGHT LUNG PAIN FOR 4 DAYS. PT HAS GREEN/YELLOW SPUTUM WITH COUGH, DENIES BEING AROUND ANYONE. ALSO C/O LEFT KNEE PAIN AND BRUISE THAT "IS TURNING BLACK, AND IT HURTS TO WALK". HX OF LEFT KNEE SURGERY IN 2014.
[2020-10-29 18:26] LABS: BASOPHILS % (AUTO) 1 % (0-1); EOSINOPHILS % (AUTO) 1 % (1-7); LYMPHOCYTES % (AUTO) 27 % (22-44); MEAN CORPUSCULAR HEMOGLOBIN 27.6 pg (27.5-34.5); MEAN PLATELET VOLUME 7.3 fL (7.4-10.4); MONOCYTES % (AUTO) 7 % (2-9); NEUTROPHILS % (AUTO) 65 % (42-75); PLATELET COUNT 351 x10^3/uL (130-400); RED BLOOD COUNT 5.28 x10^6/uL (4.38-5.82); RED CELL DISTRIBUTION WIDTH 14.3 % (9.4-14.8)
[2020-10-29 18:29] LABS: MD NO
[2020-10-29 18:38] LABS: ALBUMIN 3.6 g/dL (3.4-5.0); ANION GAP 6 mmol/L (5-15); CALCIUM 8.7 mg/dL (8.5-10.1); CHLORIDE 108 mmol/L (98-107)
[2020-10-29 18:40] LABS: ALANINE AMINOTRANSFERASE 23 U/L (12-78); ALKALINE PHOSPHATASE 79 U/L (45-117); BILIRUBIN,TOTAL 0.6 mg/dL (0.2-1.0); CREATININE 1.01 mg/dL (0.7-1.3); TOTAL PROTEIN 7.8 g/dL (6.4-8.2)
--- NOTE | 2020-10-29 18:40 | NUR ---
JENNIFER COLLECTED AND WALKED TO LAB
[2020-10-29] MEDS ORDERED: POTASSIUM CHLORIDE 20 MEQ TAB.ER.PRT ONE (19:23)
[2020-10-29 19:28] VITALS: BP 134/70
[2020-10-29] MEDS ORDERED: POTASSIUM CHLORIDE 20 MEQ TAB.ER.PRT PO ONE (19:30)
== END 2020-10-29 19:38 | disposition home or self-care (01) ==
LOC: ED 19:30
DX: R06.00 Dyspnea, unspecified (principal); Z20.822 Contact with and (suspected) exposure to COVID-19; R05 Cough; R50.9 Fever, unspecified; R42 Dizziness and giddiness; R06.02 Shortness of breath; R94.31 Abnormal electrocardiogram [ECG] [EKG]; F17.210 Nicotine dependence, cigarettes, uncomplicated
CPT/HCPCS: 36415; 71045; 80053; 83605; 85025; 87040; 93005; 99285; U0003

== ENCOUNTER 2020-12-11 21:13 | Emergency (ER) | payer MEDICAID ==
[~2020-12-11] VITALS: Ht 175.3 cm; Wt 85.0 kg
[~2020-12-11 21:13] MED LIST changes: -HYDR-1067 PO; +HYDR-2214 PO
--- NOTE | 2020-12-11 21:24 | NUR ---
PT HERE FOR SI. PT HAS HAD THESE FEELINGS FOR SEVERAL DAYS. PT ALSO HAD A COUPLE OF BEERS AND POSSIBLY INGESTED RAT POISON. PT ALSO COMPLAINING OF BACK PAIN DUE TO PREVIOUS SURGERY. PTS BELONINGS AND 1 BAG SECURED IN LOCKER. VSS. ROOM SECURED
[2020-12-11 21:31] LABS: BASOPHILS % (AUTO) 0 % (0-1); EOSINOPHILS % (AUTO) 0 % (1-7); LYMPHOCYTES % (AUTO) 35 % (22-44); MEAN CORPUSCULAR HEMOGLOBIN 27.5 pg (27.5-34.5); MEAN CORPUSCULAR HGB CONC 32.9 g/dL (33.2-36.2); MONOCYTES % (AUTO) 7 % (2-9); NEUTROPHILS % (AUTO) 58 % (42-75); PLATELET COUNT 318 x10^3/uL (130-400); RED BLOOD COUNT 5.57 x10^6/uL (4.38-5.82); RED CELL DISTRIBUTION WIDTH 14.2 % (9.4-14.8)
[2020-12-11 21:32] LABS: MD NO
--- NOTE | 2020-12-11 21:38 | NUR ---
AT BEDSIDE. URINAL GIVEN FOR UA
--- NOTE | 2020-12-11 21:40 | NUR ---
ATTEMPTED TO CALL SPOUSE. NA AND UNABLE TO LEAVE A MESSAGE. PT UPDATED. SPOUSE: [phone]
[2020-12-11 21:42] LABS: ALBUMIN 3.9 g/dL (3.4-5.0); ANION GAP 9 mmol/L (5-15); CALCIUM 8.7 mg/dL (8.5-10.1); CHLORIDE 108 mmol/L (98-107); SALICYLATE LEVEL 2.7 mg/dL (2.8-20.0)
[2020-12-11 21:45] LABS: ALANINE AMINOTRANSFERASE 48 U/L (12-78); ALKALINE PHOSPHATASE 87 U/L (45-117); BILIRUBIN,TOTAL 0.8 mg/dL (0.2-1.0); CREATININE 1.21 mg/dL (0.7-1.3); TOTAL PROTEIN 7.9 g/dL (6.4-8.2)
[2020-12-11] MEDS ORDERED: LORazepam 1MG TABLET PO ONE (22:30)
[2020-12-11] MEDS ORDERED: LORazepam 1MG TABLET ONE (22:39)
--- NOTE | 2020-12-11 22:43 | NUR ---
PT MEDICATED FOR ANXIETY. SITTER IN VIEW OF PT
[2020-12-11 23:21] LABS: INTERNATIONAL NORMALIZED RATIO 1.02 (0.93-1.1); PROTHROMBIN TIME 10.9 Seconds (9.6-11.5)
--- NOTE | 2020-12-11 23:29 | NUR ---
PT RESTING AND APPEARS TO BE CALMER. SITTER IN VIEW OF PT
--- NOTE | 2020-12-12 01:07 | NUR ---
PT STILL UNABLE TO URINATE. URINAL AT BEDSIDE. PT GIVEN WATER. PT ALSO REBREATHALYZED. UPDATED. SITTER IN VIEW OF PT.
--- NOTE | 2020-12-12 01:15 | NUR ---
REPORT TO AMMY RAHMAN
--- NOTE | 2020-12-12 01:18 | NUR ---
RECEIVED REPORT FROM JOSIAH MCRAE
--- NOTE | 2020-12-12 02:39 | NUR ---
PATIENT SLEEPING, SITTER AT THE DOOR.
--- NOTE | 2020-12-12 04:09 | NUR ---
Packet faxed to [facility] for first dibs
--- NOTE | 2020-12-12 04:35 | NUR ---
covid swab sent to lab. patient calm and cooperative. VSS
[2020-12-12 04:36] VITALS: BP 134/81
[2020-12-12 05:37] LABS: AMPHETAMINE SCREEN, URINE Negative (Negative); BARBITURATE SCREEN, URINE Negative (Negative); BENZODIAZEPINE SCREEN, URINE Negative (Negative); CANNABINOID SCREEN, URINE Negative (Negative); COCAINE SCREEN, URINE Negative (Negative); METHADONE SCREEN, URINE Negative (Negative); OPIATE SCREEN, URINE Negative (Negative)
--- NOTE | 2020-12-12 05:53 | NUR ---
report to JOSIAH Mon
== END 2020-12-12 06:08 ==
LOC: ED 22:23
DX: R45.851 Suicidal ideations (principal); Z20.822 Contact with and (suspected) exposure to COVID-19; F33.9 Major depressive disorder, recurrent, unspecified; R44.0 Auditory hallucinations; R00.0 Tachycardia, unspecified; F17.200 Nicotine dependence, unspecified, uncomplicated
CPT/HCPCS: 36415; 80053; 80299; 80307; 80320; 80329; 85025; 85610; 85730; 87426; 99285; G0480

== ENCOUNTER 2020-12-12 05:04 | Inpatient (IN) | payer MEDICAID ==
[~2020-12-12] VITALS: Ht 188 cm; Wt 88.8 kg
[2020-12-12] MEDS ORDERED: DOCUSATE 100 MG CAPSULE PO PRN (06:30)
[2020-12-12] MEDS ORDERED: PLEASE ENTER HEIGHT AND WEIGHT MC SCH (06:30)
[2020-12-12] MEDS ORDERED: BISACODYL 10 MG SUPP PR PRN (06:30)
[2020-12-12] MEDS ORDERED: POLYETHYLENE GLYCOL 17 GM PACKET PO PRN (06:30)
[2020-12-12] MEDS ORDERED: ACETAMINOPHEN 325 MG TABLET PO PRN (06:30)
[2020-12-12 06:56] LABS: FREE T4 (FREE THYROXINE) 1.15 ng/dL (0.76-1.46)
[2020-12-12 07:07] LABS: CHOL/HDL RATIO 3.6; LDL/HDL RATIO 1.6 (0.5-3.0)
[2020-12-12 07:36] VITALS: BP 133/83
[2020-12-12] MEDS: HYDROcodone/APAP 5/325 TABLET PO PRN (08:45)
[2020-12-12] MEDS: DULOXETINE 30 MG CAPSULE.DR PO SCH (08:45)
[2020-12-12 11:39] VITALS: BP 126/84
[2020-12-12] MEDS ORDERED: NICOTINE 21 MG/24 HR PATCH.TD24 TD SCH (12:00)
[2020-12-12] MEDS ORDERED: CYCLOBENZAPRINE 10 MG TABLET PO PRN (12:00)
[2020-12-12] MEDS: MULTIVITAMIN 1 TABLET PO SCH (12:22)
[2020-12-12] MEDS: THIAMINE 100MG TABLET PO SCH (12:22)
[2020-12-12] MEDS: RISPERIDONE 1 MG TABLET PO SCH ×2 (12:22→20:43)
[2020-12-12] MEDS: LORazepam 1MG TABLET PO PRN (12:22)
[2020-12-12 12:56] LABS: PROTHROMBIN TIME 10.7 Seconds (9.6-11.5)
[2020-12-12 12:57] LABS: ALBUMIN 3.6 g/dL (3.4-5.0); ANION GAP 6 mmol/L (5-15); CHLORIDE 106 mmol/L (98-107)
[2020-12-12 13:25] LABS: ALANINE AMINOTRANSFERASE 42 U/L (12-78); ALKALINE PHOSPHATASE 78 U/L (45-117); BILIRUBIN,TOTAL 0.5 mg/dL (0.2-1.0); CREATININE 1.07 mg/dL (0.7-1.3); TOTAL PROTEIN 7.3 g/dL (6.4-8.2); TROPONIN I < 0.015 ng/mL (0.000-0.045)
[2020-12-12 18:54] VITALS: BP 129/78
[2020-12-12] MEDS: TRAZODONE 150MG TABLET PO SCH (20:43)
[2020-12-12] MEDS: AMOXICILLIN/CLAV 875-125MG TABLET PO SCH (20:43)
[2020-12-13 07:59] VITALS: BP 132/84
[2020-12-13] MEDS: MULTIVITAMIN 1 TABLET PO SCH (08:46)
[2020-12-13] MEDS: THIAMINE 100MG TABLET PO SCH (08:47)
[2020-12-13] MEDS: RISPERIDONE 1 MG TABLET PO SCH ×2 (08:47→20:56)
[2020-12-13] MEDS: DULOXETINE 30 MG CAPSULE.DR PO SCH (08:47)
[2020-12-13] MEDS: HYDROcodone/APAP 5/325 TABLET PO PRN ×2 (09:07→20:56)
[2020-12-13] MEDS: AMOXICILLIN/CLAV 875-125MG TABLET PO SCH ×2 (09:07→20:55)
[2020-12-13 13:34] LABS: BASOPHILS % (AUTO) 0 % (0-1); EOSINOPHILS % (AUTO) 1 % (1-7); LYMPHOCYTES % (AUTO) 26 % (22-44); MEAN CORPUSCULAR HEMOGLOBIN 27.7 pg (27.5-34.5); MEAN CORPUSCULAR HGB CONC 32.8 g/dL (33.2-36.2); MEAN PLATELET VOLUME 7.2 fL (7.4-10.4); MONOCYTES % (AUTO) 7 % (2-9); NEUTROPHILS % (AUTO) 66 % (42-75); PLATELET COUNT 274 x10^3/uL (130-400); RED BLOOD COUNT 4.87 x10^6/uL (4.38-5.82); RED CELL DISTRIBUTION WIDTH 14.4 % (9.4-14.8)
[2020-12-13 13:35] LABS: MD NO
[2020-12-13 13:42] LABS: ALANINE AMINOTRANSFERASE 34 U/L (12-78); ALBUMIN 3.2 g/dL (3.4-5.0); ANION GAP 5 mmol/L (5-15); CALCIUM 8.9 mg/dL (8.5-10.1); CHLORIDE 105 mmol/L (98-107); CREATININE 0.86 mg/dL (0.7-1.3)
[2020-12-13 13:45] LABS: ALKALINE PHOSPHATASE 63 U/L (45-117); BILIRUBIN,TOTAL 0.3 mg/dL (0.2-1.0); TOTAL PROTEIN 6.5 g/dL (6.4-8.2)
[2020-12-13 19:22] VITALS: BP 112/74
[2020-12-13] MEDS: TRAZODONE 150MG TABLET PO SCH (20:56)
[2020-12-13] MEDS: LOPERAMIDE 2 MG CAPSULE PO PRN (21:35)
[2020-12-14 07:57] VITALS: BP 117/85
[2020-12-14] MEDS: AMOXICILLIN/CLAV 875-125MG TABLET PO SCH (08:09)
[2020-12-14] MEDS: RISPERIDONE 1 MG TABLET PO SCH ×2 (08:09→21:19)
[2020-12-14] MEDS: THIAMINE 100MG TABLET PO SCH (08:09)
[2020-12-14] MEDS: FENOFIBRATE 145 MG TABLET PO SCH (08:09)
[2020-12-14] MEDS: DULOXETINE 30 MG CAPSULE.DR PO SCH (08:09)
[2020-12-14] MEDS: MULTIVITAMIN 1 TABLET PO SCH (08:09)
[2020-12-14] MEDS ORDERED: REGADENOSON 0.4 MG/5 ML SYRINGE ONE (09:06)
[2020-12-14] MEDS ORDERED: SINCALIDE (KINEVAC) 5 MCG ONE (09:06)
[2020-12-14] MEDS: LOPERAMIDE 2 MG CAPSULE PO PRN (10:23)
[2020-12-14 20:16] VITALS: BP 127/80
[2020-12-14 20:17] VITALS: BP 127/76
[2020-12-14] MEDS: IBUPROFEN 200 MG TABLET PO PRN (21:19)
[2020-12-14] MEDS: TRAZODONE 150MG TABLET PO SCH (21:20)
[2020-12-15 07:45] VITALS: BP 111/74
[2020-12-15] MEDS: FENOFIBRATE 145 MG TABLET PO SCH (08:46)
[2020-12-15] MEDS: MULTIVITAMIN 1 TABLET PO SCH (08:46)
[2020-12-15] MEDS: THIAMINE 100MG TABLET PO SCH (08:46)
[2020-12-15] MEDS: RISPERIDONE 1 MG TABLET PO SCH ×2 (08:46→20:04)
[2020-12-15] MEDS: DULOXETINE 30 MG CAPSULE.DR PO SCH (08:47)
[2020-12-15] MEDS: HYDROcodone/APAP 5/325 TABLET PO PRN ×3 (08:51→20:04)
[2020-12-15] MEDS: LOPERAMIDE 2 MG CAPSULE PO PRN (13:33)
[2020-12-15] MEDS: LORazepam 1MG TABLET PO PRN (13:37)
[2020-12-15 19:01] VITALS: BP 111/73
[2020-12-15] MEDS: TRAZODONE 150MG TABLET PO SCH (20:03)
[2020-12-16 07:33] VITALS: BP 108/71
[2020-12-16] MEDS: THIAMINE 100MG TABLET PO SCH (08:07)
[2020-12-16] MEDS: MULTIVITAMIN 1 TABLET PO SCH (08:07)
[2020-12-16] MEDS: DULOXETINE 30 MG CAPSULE.DR PO SCH (08:07)
[2020-12-16] MEDS: RISPERIDONE 1 MG TABLET PO SCH ×2 (08:07→20:41)
[2020-12-16] MEDS: FENOFIBRATE 145 MG TABLET PO SCH (08:07)
[2020-12-16] MEDS: HYDROcodone/APAP 5/325 TABLET PO PRN (11:40)
[2020-12-16] MEDS: LORazepam 1MG TABLET PO PRN (15:34)
[2020-12-16] MEDS: IBUPROFEN 200 MG TABLET PO PRN (15:34)
[2020-12-16 19:47] VITALS: BP 130/83
[2020-12-16] MEDS: TRAZODONE 150MG TABLET PO SCH (20:41)
[2020-12-17 07:51] VITALS: BP 110/75
[2020-12-17] MEDS ORDERED: DULO30CA2 PO (07:56)
[2020-12-17] MEDS ORDERED: RISP1TAB90 PO (07:56)
[2020-12-17] MEDS ORDERED: FENO145T19 PO (07:56)
[2020-12-17] MEDS ORDERED: MULT-482 PO (07:56)
[2020-12-17] MEDS ORDERED: CYCL10TA2 PO (07:56)
[2020-12-17] MEDS ORDERED: TRAZ150T62 PO (07:56)
[2020-12-17] MEDS: RISPERIDONE 1 MG TABLET PO SCH (08:25)
[2020-12-17] MEDS: MULTIVITAMIN 1 TABLET PO SCH (08:25)
[2020-12-17] MEDS: DULOXETINE 30 MG CAPSULE.DR PO SCH (08:25)
[2020-12-17] MEDS: FENOFIBRATE 145 MG TABLET PO SCH (08:25)
[2020-12-17] MEDS: THIAMINE 100MG TABLET PO SCH (08:25)
[2020-12-17] MEDS: HYDROcodone/APAP 5/325 TABLET PO PRN (08:34)
== END 2020-12-17 13:10 | disposition home or self-care (01) | DRG 885 ==
LOC: 3E 05:56
PROVIDERS: ADMIT Psychiatry & Neurology Psychosomatic Medicine; ATTEND Psychiatry & Neurology Psychosomatic Medicine
DX: F33.3 Major depressive disorder, recurrent, severe with psychotic symptoms (principal); R45.851 Suicidal ideations; E78.1 Pure hyperglyceridemia; F10.20 Alcohol dependence, uncomplicated; F63.0 Pathological gambling; G47.00 Insomnia, unspecified; G89.29 Other chronic pain; M54.30 Sciatica, unspecified side; K80.20 Calculus of gallbladder without cholecystitis without obstruction; Z79.899 Other long term (current) drug therapy; F17.210 Nicotine dependence, cigarettes, uncomplicated; M79.18 Myalgia, other site; R07.89 Other chest pain; Z56.0 Unemployment, unspecified; Z59.0 Homelessness
CPT/HCPCS: 36415; 71045; 76705; 78226; 80053; 80061; 82140; 82607; 83690; 84439; 84443; 84484; 85025; 85610; 93005; J2785; A9537; J2805

== ENCOUNTER 2020-12-18 13:13 | Emergency (ER) | payer MEDICAID ==
[~2020-12-18] VITALS: Ht 193 cm; Wt 100.0 kg
[~2020-12-18 13:13] MED LIST changes: +CYCL10TA2 PO; +DULO30CA2 PO; +FENO145T19 PO; +MULT-482 PO; +RISP1TAB90 PO; +TRAZ150T62 PO
--- NOTE | 2020-12-18 13:25 | NUR ---
january from the [facility] after having 10/10 abdominal pain with loose stool and vomiting. pt also reports foul smelling urine. pt d/c yesterday from [place] after SA attempt by drinking rat poision. pt postioned to comfort. attached to monitors. vss.
--- NOTE | 2020-12-18 13:41 | NUR ---
DR. LOZADA TO BEDSIDE FOR EVALUAITON. PT DENIES SI/HI.
[2020-12-18] MEDS ORDERED: ONDANSETRON 2MG/ML, 2ML ONE (13:52)
[2020-12-18] MEDS ORDERED: MORPHINE SULFATE 4 MG/ML, 1ML ONE (13:52)
[2020-12-18 13:57] LABS: MICROSCOPIC NOT IND
[2020-12-18] MEDS ORDERED: SODIUM CHLORIDE 0.9% 1,000 ML IV ONE (14:00)
[2020-12-18] MEDS ORDERED: MORPHINE SULFATE 4 MG/ML, 1ML IVPush PRN (14:00)
[2020-12-18] MEDS ORDERED: SODIUM CHLORIDE FLUSH 10ML SYR IVF ONE (14:00)
[2020-12-18] MEDS ORDERED: SODIUM CHLORIDE 0.9% 1,000ML IVBOLUS ONE (14:00)
[2020-12-18] MEDS ORDERED: ONDANSETRON 2MG/ML, 2ML IVPush ONE (14:00)
--- NOTE | 2020-12-18 14:01 | NUR ---
us to bedside.
[2020-12-18 14:49] LABS: BASOPHILS % (AUTO) 0 % (0-1); EOSINOPHILS % (AUTO) 0 % (1-7); LYMPHOCYTES % (AUTO) 17 % (22-44); MEAN CORPUSCULAR HEMOGLOBIN 28.4 pg (27.5-34.5); MEAN CORPUSCULAR HGB CONC 33.2 g/dL (33.2-36.2); MEAN PLATELET VOLUME 7.2 fL (7.4-10.4); MONOCYTES % (AUTO) 8 % (2-9); NEUTROPHILS % (AUTO) 75 % (42-75); PLATELET COUNT 285 x10^3/uL (130-400); RED BLOOD COUNT 5.12 x10^6/uL (4.38-5.82); RED CELL DISTRIBUTION WIDTH 14.9 % (9.4-14.8)
[2020-12-18 14:55] LABS: ALANINE AMINOTRANSFERASE 31 U/L (12-78); ALBUMIN 3.7 g/dL (3.4-5.0); ANION GAP 6 mmol/L (5-15); CALCIUM 8.4 mg/dL (8.5-10.1); CHLORIDE 110 mmol/L (98-107); CREATININE 0.84 mg/dL (0.7-1.3); MD NO
[2020-12-18 14:57] LABS: ALKALINE PHOSPHATASE 67 U/L (45-117); BILIRUBIN,TOTAL 0.8 mg/dL (0.2-1.0); TOTAL PROTEIN 7.4 g/dL (6.4-8.2)
--- NOTE | 2020-12-18 15:16 | NUR ---
pt asleep with even and unlabored respirations. rah. nina.
[2020-12-18 16:39] VITALS: BP 139/81
--- NOTE | 2020-12-18 16:40 | NUR ---
Patient given discharge instructions and they have confirmed that they understand the instructions. Patient ambulatory with steady gait.
== END 2020-12-18 16:41 | disposition home or self-care (01) ==
LOC: ED 13:43
DX: K80.20 Calculus of gallbladder without cholecystitis without obstruction (principal); R10.13 Epigastric pain; R10.12 Left upper quadrant pain; R11.2 Nausea with vomiting, unspecified; I10 Essential (primary) hypertension; F17.200 Nicotine dependence, unspecified, uncomplicated
CPT/HCPCS: 36415; 71045; 76700; 80053; 81003; 83690; 85025; 96361; 96374; 96375; 99285; J2270; J2405; J7030